=== PATIENT | female | born 1975 | race Caucasian/White ===

== ENCOUNTER 2019-04-23 11:37 | Emergency (ER) | payer OTHER ==
[~2019-04-23] VITALS: Ht 180.3 cm; Wt 62.1 kg
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
[2019-04-23] MEDS ORDERED: HYDROcodone/Acetamin 10/325 tab ORAL ONE (12:00)
--- NOTE | 2019-04-23 12:05 | NUR ---
ED Nurse Note: X-ray and medications complete at this time.
--- NOTE | 2019-04-23 12:17 | NUR ---
ED Nurse Note: Pt states she has no pain if she is not moving.
--- NOTE | 2019-04-23 12:45 | NUR ---
ED Nurse Note: Pt resting comfortably with family member at bedside.
[2019-04-23] MEDS ORDERED: IBUPROFEN600 MG ORAL (13:11)
[2019-04-23 13:20] VITALS: BP 130/75
--- NOTE | 2019-04-23 13:20 | NUR ---
ER DISCHARGE NOTE: Patient is cleared to be discharged per ERMD, pt is aox4, on room air, with stable vital signs. pt was given dc and prescription instructions, pt was able to verbalize understanding, pt id band and iv site removed without complications. pt is able to ambulate with steady gait. pt took all belongings. Pt left with family memeber.
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
--- NOTE | 2019-04-24 11:02 | Diagnostic Imaging Report ---
Indication: Pain, trauma Technique: 3 views of the right knee Comparison: None Findings: No acute fractures. No dislocations. No suprapatellar effusion Impression: Negative
== END 2019-04-23 13:20 | disposition home or self-care (01) ==
LOC: EMR 12:10
DX: S83.91XA Sprain of unspecified site of right knee, initial encounter (principal); W18.40XA Slipping, tripping and stumbling without falling, unspecified, initial encounter; Y93.18 Activity, surfing, windsurfing and boogie boarding; Y92.832 Beach as the place of occurrence of the external cause
CPT/HCPCS: 29505; 99291